=== PATIENT | female | born 1960 | race Caucasian/White ===

== ENCOUNTER → 2023-11-27 10:19 | Outpatient (REF) | payer MEDICARE, OTHER, SELFPAY | LOC: WDC 10:19 | PROVIDERS: ATTENDING PHYSICIAN Obstetrics & Gynecology; FAMILY PHYSICIAN Internal Medicine | DX: Z12.31 Encounter for screening mammogram for malignant neoplasm of breast (principal); R92.8 Other abnormal and inconclusive findings on diagnostic imaging of breast | CPT/HCPCS: 76642; 77063; 77067 ==

== ENCOUNTER → 2024-03-12 09:41 | Outpatient (REF) | payer MEDICARE, OTHER, SELFPAY | LOC: HWRAD 09:41 | PROVIDERS: ATTENDING PHYSICIAN Internal Medicine Rheumatology; FAMILY PHYSICIAN Internal Medicine | DX: M81.0 Age-related osteoporosis without current pathological fracture (principal) | CPT/HCPCS: 77080 ==

== ENCOUNTER → 2024-03-13 09:45 | Outpatient (REF) | payer MEDICARE, OTHER, SELFPAY | LOC: MRI 3T 09:45 | PROVIDERS: ATTENDING PHYSICIAN Internal Medicine Rheumatology; FAMILY PHYSICIAN Internal Medicine | DX: M79.641 Pain in right hand (principal) | CPT/HCPCS: 73220; A9575 ==

== ENCOUNTER → 2025-05-11 10:35 | Outpatient (REF) | payer MEDICARE, OTHER, SELFPAY | LOC: WDC 10:35 | PROVIDERS: ATTENDING PHYSICIAN Obstetrics & Gynecology; FAMILY PHYSICIAN Internal Medicine | DX: Z12.31 Encounter for screening mammogram for malignant neoplasm of breast (principal); R92.8 Other abnormal and inconclusive findings on diagnostic imaging of breast | CPT/HCPCS: 76642; 77063; 77067 ==

== ENCOUNTER → 2025-09-08 11:49 | Outpatient (REF) | payer MEDICARE, OTHER, SELFPAY | LOC: MRI 3T 11:49 | PROVIDERS: ATTENDING PHYSICIAN Ophthalmology; FAMILY PHYSICIAN Internal Medicine | DX: H54.60 Unqualified visual loss, one eye, unspecified (principal) | CPT/HCPCS: 70543; A9575 ==